=== PATIENT | male | born 1985 | race Caucasian/White ===

== ENCOUNTER 2018-05-08 00:35 | Emergency (ER) | payer OTHER ==
[~2018-05-08] VITALS: Ht 167.6 cm; Wt 102.5 kg
[2018-05-08 00:45] VITALS: BP 121/66
[2018-05-08] MEDS ORDERED: KETOROLAC 30 MG/ML VIAL IM ONE (01:25)
[2018-05-08 02:44] VITALS: BP 112/70
== END 2018-05-08 02:44 | disposition home or self-care (01) ==
LOC: MED 00:35
DX: S83.91XA Sprain of unspecified site of right knee, initial encounter (principal); X58.XXXA Exposure to other specified factors, initial encounter; Y93.01 Activity, walking, marching and hiking; Y92.832 Beach as the place of occurrence of the external cause; Y99.8 Other external cause status
CPT/HCPCS: 73562; 96372; 99284; J1885; Q0092